=== PATIENT | male | born 1990 | race Caucasian/White ===

== ENCOUNTER 2018-04-08 19:23 | Emergency (ER) | payer BC, MEDICAID ==
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
[2018-04-08 20:53] VITALS: BP 127/61
== END 2018-04-08 20:56 | disposition home or self-care (01) ==
LOC: DL.ED 19:23
DX: M25.461 Effusion, right knee (principal); E10.9 Type 1 diabetes mellitus without complications
CPT/HCPCS: 73562-RT; 99283

== ENCOUNTER 2018-10-22 01:10 | Emergency (ER) | payer MEDICAID ==
[2018-10-22 01:26] VITALS: BP 130/81
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
[2018-10-22] MEDS ORDERED: Sodium Chloride 0.9% 1,000 ML IV ONE (01:57)
[2018-10-22 02:14] LABS: ACETAMINOPHEN < 10.0 ug/mL; ANION GAP 23.8; CHLORIDE,CL 94 mmol/L (101-111); SODIUM,NA 138 mmol/L (135-145)
== END 2018-10-22 02:51 ==
LOC: DL.ED 01:10
DX: E86.0 Dehydration (principal); R44.3 Hallucinations, unspecified; F15.10 Other stimulant abuse, uncomplicated; E10.9 Type 1 diabetes mellitus without complications; F17.210 Nicotine dependence, cigarettes, uncomplicated
CPT/HCPCS: 36415; 80053; 80305; 81001; 82962; 84484; 85025; 93005; 96360; 99282; G0480; J7030

== ENCOUNTER 2018-11-04 14:14 | Emergency (ER) | payer MEDICAID ==
[2018-11-04 15:49] VITALS: BP 143/76
[2018-11-04 16:44] LABS: ANION GAP 15.4; CHLORIDE,CL 99 mmol/L (101-111); SODIUM,NA 136 mmol/L (135-145)
[2018-11-04 16:58] LABS: ACETAMINOPHEN < 10 ug/mL
== END 2018-11-04 17:10 | disposition left against medical advice (07) ==
LOC: DL.ED 14:14
DX: Z53.21 Procedure and treatment not carried out due to patient leaving prior to being seen by health care provider (principal)
CPT/HCPCS: 36415; 80053; 80305; 81003; 85025; G0480

== ENCOUNTER 2019-03-14 08:31 | Emergency (ER) | payer MEDICAID ==
[~2019-03-14 08:31] MED LIST: Sodium Chloride 0.9% 10 ML Syringe FLUSH PRN
[2019-03-14 08:36] VITALS: BP 149/102
[2019-03-14] MEDS ORDERED: Bacitracin Oint 1 GM U/D Packet TOP ONE (08:39)
[2019-03-14] MEDS ORDERED: Lidocaine 1% 30 ML SDV INJECT ONE (08:39)
[2019-03-14 09:00] LABS: ANION GAP 14.1; CHLORIDE,CL 101 mmol/L (101-111); SODIUM,NA 136 mmol/L (135-145)
[2019-03-14] MEDS ORDERED: Potassium Chloride 10 MEQ Tab.ER PO ONE (10:45)
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
== END 2019-03-14 14:06 | disposition home or self-care (01) ==
LOC: DL.ED 08:31
DX: S61.210A Laceration without foreign body of right index finger without damage to nail, initial encounter (principal); S81.011A Laceration without foreign body, right knee, initial encounter; S81.012A Laceration without foreign body, left knee, initial encounter; E10.649 Type 1 diabetes mellitus with hypoglycemia without coma; F17.210 Nicotine dependence, cigarettes, uncomplicated; Y04.0XXA Assault by unarmed brawl or fight, initial encounter
CPT/HCPCS: 12001; 36415; 80053; 82962; 85025; 93005; 99285; A9270; G0480; J2001; 12002

== ENCOUNTER 2020-09-15 19:50 | Emergency (ER) | payer MEDICAID ==
[2020-09-15 20:16] VITALS: BP 145/79; PULSE 72
[2020-09-15] MEDS ORDERED: Amoxicillin 500 MG Cap PO ONE (21:09)
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
== END 2020-09-15 21:20 | disposition home or self-care (01) ==
LOC: DL.ED 19:50
DX: K04.7 Periapical abscess without sinus (principal); K02.9 Dental caries, unspecified; E10.9 Type 1 diabetes mellitus without complications; F17.210 Nicotine dependence, cigarettes, uncomplicated
CPT/HCPCS: 99282; A9270; 99283

== ENCOUNTER 2021-01-10 21:54 | Emergency (ER) | payer MEDICAID ==
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
[2021-01-10] MEDS ORDERED: Sodium Chloride 0.9% 1,000 ML IV ONE (22:04)
[2021-01-10] MEDS ORDERED: Naloxone 2 MG/2 ML Syringe IVPUSH ONE (22:23)
[2021-01-10 22:39] LABS: ANION GAP 12.6 mEq/L (7-13); CHLORIDE,CL 104 mmol/L (98-107); SODIUM,NA 142 mmol/L (136-145)
[2021-01-10] MEDS ORDERED: Ondansetron 4 MG/2 ML SDV IVPUSH ONE (22:41)
--- NOTE | 2021-01-10 22:42 | CT ---
PROCEDURE INFORMATION: Exam: CT Head Without Contrast Exam date and time: 01/10/2021 10:14 PM Age: 30 years old Clinical indication: Other: ETOH; Additional info: Altered mental status TECHNIQUE: Imaging protocol: Computed tomography of the head without contrast. Total images: 161 Radiation optimization: All CT scans at this facility use at least one of these dose optimization techniques: automated exposure control; mA and/or kV adjustment per patient size (includes targeted exams where dose is matched to clinical indication); or iterative reconstruction. COMPARISON: No relevant prior studies available. FINDINGS: Brain: No extra-axial fluid collections. No evidence of acute intracranial hemorrhage. Hawthorne-white differentiation is well maintained. No CT evidence of large territory acute or subacute intracranial ischemia/infarct. No intracranial mass lesions. No midline shift or herniation. Cerebral ventricles: Ventricles normal. Bones/joints: The calvarium and visualized facial bones are intact. Paranasal sinuses: Mucosal thickening in the right maxillary sinus with opacified left posterior ethmoid distribution consistent with chronic sinus inflammatory disease. No fluid levels. Mastoid air cells: Right mastoid air cells are clear. Sclerosis in the left mastoid distribution suggests mild chronic changes of prior mastoiditis. Orbital cavity: Visualized orbital contents demonstrate no evidence of acute abnormality. Vasculature: The visualized major intracranial arterial segments demonstrate no gross abnormality by noncontrast CT. No asymmetric vascular hyperdensities suggestive of thrombosis are identified. Soft tissues: Mild occipital scalp soft tissue swelling. No underlying fracture or foreign body. Other findings: The IACs are grossly normal. The sella is grossly normal. IMPRESSION: 1. No acute intracranial process. No intracranial hemorrhage or mass effect. 2. Occipital scalp soft tissue swelling with no underlying fracture or foreign body. 3. Evidence of mild chronic sinus inflammatory disease.
[2021-01-10] MEDS ORDERED: MVI, Adult with Vitamin K 10 ML, Thiamine 100 MG, Folic Acid 1 MG in Lactated Ringers 1... IV ONE ×4 (22:58)
[2021-01-10 23:00] VITALS: BP 121/66; PULSE 110
[2021-01-10 23:19] LABS: CORONAVIRUS COVID-19 NAA NEGATIVE (NEGATIVE)
== END 2021-01-11 00:08 | disposition home or self-care (01) ==
LOC: DL.ED 21:54
DX: E10.65 Type 1 diabetes mellitus with hyperglycemia (principal); F10.920 Alcohol use, unspecified with intoxication, uncomplicated; S00.81XA Abrasion of other part of head, initial encounter; R00.0 Tachycardia, unspecified; Y90.8 Blood alcohol level of 240 mg/100 ml or more; Z20.822 Contact with and (suspected) exposure to COVID-19; X58.XXXA Exposure to other specified factors, initial encounter
CPT/HCPCS: 0240U; 36415; 51702; 70450; 80053; 80305; 80307; 81001; 82009; 82140; 82550; 82962; 83605; 83735; 84484; 85025; 86140; 93005; 96365; 96375; 99285; J2405; J3411; J7030; J7120; 93010; 99284; J3490

== ENCOUNTER 2021-01-21 13:20 | Emergency (ER) | payer MEDICAID ==
--- NOTE | 2021-01-21 13:55 | EDM.PDOC ---
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 Today noticed it was red and swollen. Denies fever or chills. Onset: Gradual Onset Date: 01/19/21 Duration: Constant, Getting Worse Location: Reports: Upper Extremity, Left Quality: Reports: Ache, Pressure Severity: Moderate Improves with: Reports: None Worsens with: Reports: None Associated Symptoms: Reports: No Other Symptoms - Related Data Allergies Allergy/AdvReac Type Severity Reaction Status Date / Time No Known Allergies Allergy Verified 01/10/21 22:14 Home Meds: Home Meds Insulin Aspart [NovoLOG] 7 unit SUBCUT ASDIRECTED 11/03/15 [History] Insulin Glarg,Human.Rec.Analog [LantUS] 32 unit SUBCUT DAILY 11/03/15 [History] Past Medical History HEENT History: Reports: Impaired Vision Other HEENT History: wears glasses Cardiovascular History: Reports: None Respiratory History: Reports: Other (See Below) Other Respiratory History: hx collapsed lung year ago in July 2018, 5 broken ribs Gastrointestinal History: Reports: None Genitourinary History: Reports: None Musculoskeletal History: Reports: None Neurological History: Reports: None Psychiatric History: Reports: None Endocrine/Metabolic History: Reports: Diabetes, Type I Hematologic History: Reports: None Immunologic History: Reports: None Oncologic (Cancer) History: Reports: None Dermatologic History: Reports: None - Infectious Disease History Infectious Disease History: Reports: None - Past Surgical History Head Surgeries/Procedures: Reports: None Musculoskeletal Surgical History: Reports: Arthroscopic Procedure Other Musculoskeletal Surgeries/Procedures:: RIGHT hip x 2 arthroscopic. Torn labrum. Social & Family History - Family History Family Medical History: No Pertinent Family History - Caffeine Use Caffeine Use: Reports: Coffee, Energy Drinks, Soda, Tea - Living Situation & Occupation Living situation: Reports: with Family ED ROS GENERAL - Review of Systems Review Of Systems: Comprehensive ROS is negative, except as noted in HPI. ED EXAM, SKIN/RASH Exam: See Below Exam Limited By: No Limitations General Appearance: Alert, WD/WN, No Apparent Distress Head: Atraumatic, Normocephalic Neck: Normal Inspection Respiratory/Chest: No Respiratory Distress, Lungs Clear Cardiovascular: Normal Peripheral Pulses, Regular Rate, Rhythm Extremities: Increased Warmth, Other (Dorsum of left hand is erythematous, sw ollen, and tender. There is a partially healed laceration 2cm in length at the radial side of the dorsal left hand, no purulent drainage. ) Neurological: Alert, Oriented, No Motor/Sensory Deficits Psychiatric: Normal Mood Course - Vital Signs Last Recorded V/S: Last Vital Signs Temp 98.8 F 01/21/21 13:32 Pulse 97 01/21/21 13:32 Resp 16 01/21/21 13:32 BP 145/78 H 01/21/21 13:32 Pulse Ox 99 01/21/21 13:32 - Orders/Labs/Meds Orders: Active Orders 24 hr Category Date Time Status Peripheral IV Care [RC] . DIRECTED Care 01/21/21 13:59 Active Sodium Chloride 0.9% [Saline Flush] Med 01/21/21 13:59 Active 10 ml FLUSH ASDIRECTED PRN Peripheral IV Insertion Adult [OM.PC] Stat Oth 01/21/21 13:59 Ordered Medication Orders Sodium Chloride (Sodium Chloride 0.9% 10 Ml Syringe) 10 ml FLUSH ASDIRECTED PRN PRN Reason: Keep Vein Open Last Admin: 01/21/21 14:13 Dose: 10 ml Documented by: ANGELESMEG Labs: Laboratory Tests 01/21/21 01/21/21 Range/Units 14:05 14:05 WBC 11.6 H (5.0-10.0) 10^3/uL RBC 4.82 (4.6-6.2) 10^6/uL Hgb 14.6 (14.0-18.0) g/dL Hct 44.6 (40.0-54.0) % MCV 92.5 (80-100) fL MCH 30.3 (27.0-34.0) pg MCHC 32.7 L (33.0-35.0) g/dL Plt Count 400 (150-450) 10^3/uL Neut % (Auto) 71.0 (42.2-75.2) % Lymph % (Auto) 16.3 L (20.5-50.1) % [place] % (Auto) 9.6 H (2-8) % Eos % (Auto) 2.1 (1.0-3.0) % Baso % (Auto) 1.0 (0.0-1.0) % C-Reactive Protein 0.7 (0.0-0.9) mg/dL Meds: Medications Generic Name Dose Route Start Last Admin Trade Name Freq PRN Reason Stop Dose Admin Sodium Chloride 10 ml 01/21/21 13:59 01/21/21 14:13 Sodium Chloride 0.9% 10 Ml Syringe FLUSH 10 ml ASDIRECTED PRN Administration Keep Vein Open Discontinued Medications Generic Name Dose Route Start Last Admin Trade Name Freq PRN Reason Stop Dose Admin Diphenhydramine HCl 25 mg 01/21/21 14:03 01/21/21 14:13 Diphenhydramine 50 Mg/Ml Sdv IVPUSH 01/21/21 14:04 25 mg ONETIME ONE Administration Vancomycin HCl 1.5 gm/ Premix 300 mls @ 200 mls/hr 01/21/21 14:30 01/21/21 14:43 IV 01/21/21 15:59 200 mls/hr ONETIME ONE Administration Departure - Departure Time of Disposition: 16:30 Disposition: Home, Self-Care 01 Condition: Good Clinical Impression: Laceration of left hand with infection Qualifiers: Encounter type: initial encounter Qualified Code(s): S61.412A - Laceration without foreign body of left hand, initial encounter; L08.9 - Local infection of the skin and subcutaneous tissue, unspecified - Discharge Information *PRESCRIPTION DRUG MONITORING PROGRAM REVIEWED*: Not Applicable *COPY OF PRESCRIPTION DRUG MONITORING REPORT IN PATIENT XENIA: Not Applicable Instructions: Nonsutured Laceration Care, Cellulitis, Adult Forms: ED Department Discharge Additional Instructions: Rx: Clindamycin 300mg Rx: Doxycycline 100mg Follow up in clinic in 3 to 5 days for recheck. Return to ER if worse at any time. Sepsis Event Note (ED) - Focused Exam Vital Signs: Vital Signs Temp Pulse Resp BP Pulse Ox 01/21/21 13:32 98.8 F 97 16 145/78 H 99 - My Orders Last 24 Hours: My Active Orders 01/21/21 13:59 Peripheral IV Care [RC] . DIRECTED Sodium Chloride 0.9% [Saline Flush] 10 ml FLUSH ASDIRECTED PRN Peripheral IV Insertion Adult [OM.PC] Stat - Assessment/Plan Last 24 Hours: My Active Orders 01/21/21 13:59 Peripheral IV Care [RC] . DIRECTED Sodium Chloride 0.9% [Saline Flush] 10 ml FLUSH ASDIRECTED PRN Peripheral IV Insertion Adult [OM.PC] Stat
[2021-01-21] MEDS ORDERED: Sodium Chloride 0.9% 10 ML Syringe FLUSH PRN (13:59)
[2021-01-21] MEDS ORDERED: diphenhydrAMINE 50 MG/ML SDV IVPUSH ONE (14:03)
[2021-01-21] MEDS ORDERED: VANCOmycin 1.5 GM/300 ML 1.5 GM in Premix Bag 1 BAG IV ONE (14:30)
[2021-01-21 17:05] VITALS: BP 139/87; PULSE 85
== END 2021-01-21 17:10 | disposition home or self-care (01) ==
LOC: DL.ED 13:20
DX: S61.412A Laceration without foreign body of left hand, initial encounter (principal); L08.9 Local infection of the skin and subcutaneous tissue, unspecified; E10.9 Type 1 diabetes mellitus without complications; W26.8XXA Contact with other sharp object(s), not elsewhere classified, initial encounter
CPT/HCPCS: 36415; 85025; 86140; 96365; 96366; 96375; 99283; J1200; J3370

== ENCOUNTER 2021-01-27 11:43 | Emergency (ER) | payer MEDICAID ==
[2021-01-27] MEDS ORDERED: Bacitracin Oint 1 GM U/D Packet TOP ONE (11:54)
[2021-01-27] MEDS ORDERED: Lidocaine 1% 30 ML SDV INJECT ONE (11:54)
[2021-01-27 12:08] VITALS: BP 147/63; PULSE 88
--- NOTE | 2021-01-27 12:26 | EDM.PDOC ---
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 Patient does have another laceration to the right hand which occurred on 21 January. Patient did not immed iately come to ER at that time, came the day later. Patient was put on IV antibiotics at that time as well sent home with oral antibiotics. Onset: Today, Sudden - Related Data Allergies Allergy/AdvReac Type Severity Reaction Status Date / Time No Known Allergies Allergy Verified 01/10/21 22:14 Home Meds: Home Meds Insulin Aspart [NovoLOG] 7 unit SUBCUT ASDIRECTED 11/03/15 [History] Insulin Glarg,Human.Rec.Analog [LantUS] 32 unit SUBCUT DAILY 11/03/15 [History] Past Medical History HEENT History: Reports: Impaired Vision Other HEENT History: wears glasses Cardiovascular History: Reports: None Respiratory History: Reports: Other (See Below) Other Respiratory History: hx collapsed lung year ago in July 2018, 5 broken ribs Gastrointestinal History: Reports: None Genitourinary History: Reports: None Musculoskeletal History: Reports: None Neurological History: Reports: None Psychiatric History: Reports: None Endocrine/Metabolic History: Reports: Diabetes, Type I Hematologic History: Reports: None Immunologic History: Reports: None Oncologic (Cancer) History: Reports: None Dermatologic History: Reports: None - Infectious Disease History Infectious Disease History: Reports: None - Past Surgical History Head Surgeries/Procedures: Reports: None Musculoskeletal Surgical History: Reports: Arthroscopic Procedure Other Musculoskeletal Surgeries/Procedures:: RIGHT hip x 2 arthroscopic. Torn labrum. Social & Family History - Family History Family Medical History: No Pertinent Family History - Tobacco Use Tobacco Use Status *Q: Current Every Day Tobacco User Years of Tobacco use: 10 Packs/Tins Daily: 1 - Caffeine Use Caffeine Use: Reports: None - Recreational Drug Use Recreational Drug Use: No - Living Situation & Occupation Living situation: Reports: with Family ED ROS GENERAL - Review of Systems Review Of Systems: Comprehensive ROS is negative, except as noted in HPI. ED EXAM, SKIN/RASH Exam: See Below Exam Limited By: No Limitations General Appearance: Alert, WD/WN, No Apparent Distress Eye Exam: Bilateral Eye: EOMI, Normal Inspection Ears: Normal External Exam, Hearing Grossly Normal Nose: Normal Inspection Throat/Mouth: Normal Inspection, Normal Voice, No Airway Compromise Head: Atraumatic, Normocephalic Neck: Normal Inspection, Supple, Non-Tender, Full Range of Motion Respiratory/Chest: No Respiratory Distress, Lungs Clear, Normal Breath Sounds, No Accessory Muscle Use, Chest Non-Tender Cardiovascular: Normal Peripheral Pulses, Regular Rate, Rhythm, No Edema, No Gallop, No JVD, No Murmur, No Rub Peripheral Pulses: 2+: Radial (L), Radial (R) GI/Abdominal: Normal Bowel Sounds, Soft, Non-Tender (Male) Exam: Deferred Rectal (Males) Exam: Deferred Back Exam: Normal Inspection, Full Range of Motion, NT Extremities: Normal Inspection, Normal Range of Motion, Non-Tender, No Pedal Edema, Normal Capillary Refill Neurological: Alert, Oriented, CN II-XII Intact, Normal Cognition, Normal Gait, Normal Reflexes, No Motor/Sensory Deficits Psychiatric: Normal Affect, Normal Mood Skin: Warm, Dry, Normal Color, No Rash, Other (3 cm laceration to the lateral right middle finger) Location, Skin: Upper Extremity, Right Lymphatic: No Adenopathy ED SKIN PROCEDURES - Laceration/Wound Repair Right Lateral Digit - 3rd (Middle) Appearance: Superficial Distal NVT: Neuro & Vascular Intact Anesthetic Type: Local Local Anesthesia - Lidocaine (Xylocaine): 1% Plain Local Anesthetic Volume: 4cc Skin Prep: Chlorhexidine (Hibiciens) Exploration/Debridement/Repair: Wound Explored, In a Bloodless Field, Explored to Base, No Foreign Material Found Closed with: Sutures Lac/Wound length In cm: 3 Suture Size: 4-0 # of Sutures: 6 Suture Type: Nylon, Interrupted Drain Placement: No Sterile Dressing Applied: Nurse Tetanus Status Addressed: Yes (Last updated in 2019) Complications: No Course - Vital Signs Last Recorded V/S: Last Vital Signs Temp 97.8 F 01/27/21 12:05 Pulse 88 01/27/21 12:05 Resp 18 01/27/21 12:05 BP 147/63 H 01/27/21 12:05 Pulse Ox 99 01/27/21 12:05 - Orders/Labs/Meds Meds: Medications Discontinued Medications Generic Name Dose Route Start Last Admin Trade Name Bonita WARREN Reason Stop Dose Admin Bacitracin 1 dose 01/27/21 11:54 01/27/21 11:59 Bacitracin Oint 1 Gm U/D Packet TOP 01/27/21 11:55 1 dose ONETIME ONE Administration Lidocaine HCl 30 ml 01/27/21 11:54 01/27/21 11:59 Lidocaine 1% 30 Ml Sdv INJECT 01/27/21 11:55 30 ml ONETIME ONE Administration Departure - Departure Time of Disposition: 12:25 Disposition: Home, Self-Care 01 Condition: Good Clinical Impression: Laceration - Discharge Information *PRESCRIPTION DRUG MONITORING PROGRAM REVIEWED*: No *COPY OF PRESCRIPTION DRUG MONITORING REPORT IN PATIENT XENIA: No Instructions: Laceration Care, Adult, [id number], Sutures, Radha, or Adhesive Wound Closure, [id number] Forms: ED Department Discharge Additional Instructions: Monitor for signs of infection Follow up with your primary care facility in 7-10 days to have sutures removed Keep area clean and dry Sepsis Event Note (ED) - Evaluation Sepsis Screening Result: No Definite Risk - Focused Exam Vital Signs: Vital Signs Temp Pulse Resp BP Pulse Ox 01/27/21 12:05 97.8 F 88 18 147/63 H 99
== END 2021-01-27 12:10 | disposition home or self-care (01) ==
LOC: DL.ED 11:43
DX: S61.212A Laceration without foreign body of right middle finger without damage to nail, initial encounter (principal); E10.9 Type 1 diabetes mellitus without complications; Z72.0 Tobacco use; W26.0XXA Contact with knife, initial encounter; Y92.89 Other specified places as the place of occurrence of the external cause; Y99.0 Civilian activity done for income or pay
CPT/HCPCS: 12002; 99282; 99282-25

== ENCOUNTER 2021-02-02 15:52 | Emergency (ER) | payer MEDICAID ==
[2021-02-02 17:50] VITALS: BP 163/82; PULSE 104
== END 2021-02-02 20:19 | disposition left against medical advice (07) ==
LOC: DL.ED 15:52
DX: Z53.21 Procedure and treatment not carried out due to patient leaving prior to being seen by health care provider (principal)
CPT/HCPCS: 36415; 85025

== ENCOUNTER 2021-02-10 08:04 | Emergency (ER) | payer MEDICAID ==
[2021-02-10 08:46] VITALS: BP 126/80; PULSE 93
--- NOTE | 2021-02-10 09:06 | EDM.PDOC ---
ED HPI GENERAL MEDICAL PROBLEM - General Chief Complaint: Respiratory Problem Stated Complaint: COUGH / TIGHTNESS IN CHEST Time Seen by Provider: 02/10/21 08:40 Source of Information: Reports: Patient, RN, RN Notes Reviewed History Limitations: Reports: No Limitations - History of Present Illness INITIAL COMMENTS - FREE TEXT/NARRATIVE: Patient presents to the ED via personal vehicle for complaints of cough, shortness of breath, and general malaise. The patient reports his symptoms began two days ago and have progressively worsened in that time. He notes his cough has been productive and his shortness of breath is worse when he is laying down. He has taken one dose of a decongestant today for sinus pressure, which offered him little to no relief of his symptoms. He denies fever, chest pain, palpitations, nausea, or diarrhea. He does attest to shaking chills, sore throat, chest tightness with cough, and one episode of emesis following a cough- attack. Additionally, he notes worsening purulent drainage, erythema, and pain to a laceration on his left, second digit. He has been taking Bactrim DS BID and Keflex 500mg for this wound. Chest Pain Score (Numeric/FACES): 8 - Related Data Allergies Allergy/AdvReac Type Severity Reaction Status Date / Time No Known Allergies Allergy Verified 02/10/21 08:21 Home Meds: Home Meds Insulin Aspart [NovoLOG] 7 unit SUBCUT ASDIRECTED 11/03/15 [History] Insulin Glarg,Human.Rec.Analog [LantUS] 32 unit SUBCUT DAILY 11/03/15 [History] Past Medical History HEENT History: Reports: Impaired Vision Other HEENT History: wears glasses Cardiovascular History: Reports: None Respiratory History: Reports: Other (See Below) Other Respiratory History: hx R) pneumothorax July 2018, 5 broken ribs Gastrointestinal History: Reports: None Genitourinary History: Reports: None Musculoskeletal History: Reports: None Neurological History: Reports: None Psychiatric History: Reports: None Endocrine/Metabolic History: Reports: Diabetes, Type I Hematologic History: Reports: None Immunologic History: Reports: None Oncologic (Cancer) History: Reports: None Dermatologic History: Reports: None - Infectious Disease History Infectious Disease History: Reports: None - Past Surgical History Head Surgeries/Procedures: Reports: None Musculoskeletal Surgical History: Reports: Arthroscopic Procedure Other Musculoskeletal Surgeries/Procedures:: RIGHT hip x 2 arthroscopic. Torn labrum. Social & Family History - Family History Family Medical History: No Pertinent Family History - Tobacco Use Tobacco Use Status *Q: Current Every Day Tobacco User Years of Tobacco use: 10 Packs/Tins Daily: 1 - Caffeine Use Caffeine Use: Reports: Soda - Recreational Drug Use Recreational Drug Use: No - Living Situation & Occupation Living situation: Reports: with Family ED ROS GENERAL - Review of Systems Review Of Systems: Comprehensive ROS is negative, except as noted in HPI. ED EXAM, GENERAL - Physical Exam Exam: See Below Exam Limited By: No Limitations General Appearance: Alert, No Apparent Distress Eye Exam: Bilateral Eye: EOMI, Normal Inspection, PERRL (3mm) Ears: Normal External Exam, Normal Canal, Hearing Grossly Normal. No: Normal TMs (Dull TM, bilaterally) Ear Exam: Bilateral Ear: Auricle Normal, Canal Normal, TM Dull Nose: Normal Inspection, Normal Mucosa, No Blood Throat/Mouth: Normal Oropharynx, Normal Voice, No Airway Compromise, Inflammation (Erythema to posterior oropharynx) Head: Atraumatic, Normocephalic Neck: Normal Inspection, Supple, Non-Tender, Full Range of Motion, Lymphadenopathy (L) (Anterior cervical chain). No: Lymphadenopathy (R) Respiratory/Chest: No Respiratory Distress, No Accessory Muscle Use, Chest Non- Tender, Rhonchi (To bilateral mid lobes), Wheezing (Expiratory to left upper lobe). No: Crackles, Rales, Stridor Cardiovascular: Normal Peripheral Pulses, Regular Rate, Rhythm, No Edema, No G allop, No JVD, No Murmur, No Rub Peripheral Pulses: 2+: Radial (L), Radial (R) GI/Abdominal: Normal Bowel Sounds, Soft, Non-Tender, No Distention, No Mass, Pelvis Stable (Male) Exam: Deferred Rectal (Males) Exam: Deferred Back Exam: Normal Inspection, Full Range of Motion Extremities: Normal Inspection, Normal Range of Motion, Non-Tender, No Pedal Edema, Normal Capillary Refill Neurological: Alert, Oriented, CN II-XII Intact, Normal Cognition, Normal Gait, No Motor/Sensory Deficits Psychiatric: Normal Affect, Normal Mood Skin Exam: Warm, Intact, Normal Color, No Rash, Diaphoretic. No: Ecchymosis, Erythema, Jaundice, Mottled, Pallor, Petechiae Lymphatic: No Adenopathy Course - Vital Signs Last Recorded V/S: Last Vital Signs Temp 97.7 F 02/10/21 08:21 Pulse 93 02/10/21 08:21 Resp 20 02/10/21 08:21 BP 126/80 02/10/21 08:21 Pulse Ox 100 02/10/21 08:21 - Orders/Labs/Meds Labs: Laboratory Tests 02/10/21 02/10/21 02/10/21 Range/Units 08:48 09:22 09:22 WBC 8.9 (5.0-10.0) 10^3/uL RBC 5.06 (4.6-6.2) 10^6/uL Hgb 15.4 (14.0-18.0) g/dL Hct 45.6 (40.0-54.0) % MCV 90.1 (80-100) fL MCH 30.4 (27.0-34.0) pg MCHC 33.8 (33.0-35.0) g/dL Plt Count 386 (150-450) 10^3/uL Neut % (Auto) 69.5 (42.2-75.2) % Lymph % (Auto) 14.9 L (20.5-50.1) % [place] % (Auto) 11.1 H (2-8) % Eos % (Auto) 3.4 H (1.0-3.0) % Baso % (Auto) 1.1 H (0.0-1.0) % Sodium 132 L D (136-145) mmol/L Potassium 4.3 (3.5-5.1) mmol/L Chloride 97 L (98-107) mmol/L Carbon Dioxide 28 (21-32) mmol/L Anion Gap 11.3 (7-13) mEq/L BUN 15 (7-18) mg/dL Creatinine 1.28 (0.70-1.30) mg/dL Est Cr Clr Drug Dosing 81.64 mL/min Estimated GFR (MDRD) > 60 BUN/Creatinine Ratio 11.7 (No establ ref range) Glucose 322 H (70-99) mg/dL Lactic Acid (0.4-2.0) mmol/L Calcium 8.3 L (8.5-10.1) mg/dL Total Bilirubin 0.9 (0.2-1.0) mg/dL AST 33 (15-37) U/L ALT 47 (16-63) U/L Alkaline Phosphatase 114 (46-116) U/L C-Reactive Protein 1.4 H (0.0-0.9) mg/dL Total Protein 7.1 (6.4-8.2) g/dL Albumin 3.7 (3.4-5.0) g/dL Globulin 3.4 Albumin/Globulin Ratio 1.1 Influenza Type A RNA Negative (NEGATIVE) Influenza Type B RNA Negative (NEGATIVE) SARS-CoV-2 RNA (MARTY) Negative (NEGATIVE) 02/10/21 Range/Units 09:22 WBC (5.0-10.0) 10^3/uL RBC (4.6-6.2) 10^6/uL Hgb (14.0-18.0) g/dL Hct (40.0-54.0) % MCV (80-100) fL MCH (27.0-34.0) pg MCHC (33.0-35.0) g/dL Plt Count (150-450) 10^3/uL Neut % (Auto) (42.2-75.2) % Lymph % (Auto) (20.5-50.1) % [place] % (Auto) (2-8) % Eos % (Auto) (1.0-3.0) % Baso % (Auto) (0.0-1.0) % Sodium (136-145) mmol/L Potassium (3.5-5.1) mmol/L Chloride (98-107) mmol/L Carbon Dioxide (21-32) mmol/L Anion Gap (7-13) mEq/L BUN (7-18) mg/dL Creatinine (0.70-1.30) mg/dL Est Cr Clr Drug Dosing mL/min Estimated GFR (MDRD) BUN/Creatinine Ratio (No establ ref range) Glucose (70-99) mg/dL Lactic Acid 0.8 (0.4-2.0) mmol/L Calcium (8.5-10.1) mg/dL Total Bilirubin (0.2-1.0) mg/dL AST (15-37) U/L ALT (16-63) U/L Alkaline Phosphatase (46-116) U/L C-Reactive Protein (0.0-0.9) mg/dL Total Protein (6.4-8.2) g/dL Albumin (3.4-5.0) g/dL Globulin Albumin/Globulin Ratio Influenza Type A RNA (NEGATIVE) Influenza Type B RNA (NEGATIVE) SARS-CoV-2 RNA (MARTY) (NEGATIVE) - Radiology Interpretation Free Text/Narrative:: [facility] [place] [facility] Final Radiology Report Call: [phone] assistance Online chat: [email or web address] Name: BLANCA HURLEY Age: 30Years M Date: 02/10/2021 SSN: -- : 1990 Study: CR CHEST 2V Requesting Physician: Sidra Corado Images: 3 Addl Studies: Provided Clinical History: cough; SOB; Rales and expiratory wheeze to left Contrast: Contrast Medium: Contrast Amount: Contrast Method: CONFIDENTIALITY STATEMENT This report is intended only for use by the referring physician, and only in accordance with law. If you received this in error, call [phone]. Page 1 of 1 PROCEDURE INFORMATION: Exam: XR Chest Exam date and time: 02/10/2021 10:07 AM Age: 30 years old Clinical indication: Other: Cough; SOB; Rales and expiratory wheeze to left TECHNIQUE: Imaging protocol: XR of the chest. Views: 2 views. COMPARISON: CR Ribs 2V w Chest Rt 09/22/2018 6:24 PM FINDINGS: Lungs: Unremarkable. No consolidation. Pleural spaces: Unremarkable. No pleural effusion. No pneumothorax. Heart/Mediastinum: Unremarkable. No cardiomegaly. Bones/joints: Bilateral old rib fractures. IMPRESSION: No acute findings. For Thank you for allowing us to participate in the care of your patient. Dictated and Authenticated by: Timo Pozo MD 02/10/2021 10:32 AM Central Time ([place] & [place]) - Re-Assessments/Exams Free Text/Narrative Re-Assessment/Exam: 02/10/21 COVID negative. CXR unremarkable for acute processes. CBC unremarkable for acute processes; no evidence of infection or anemia. Electrolytes, kidney function, and liver function appropriate via CMP; glucose significantly elevated at 322. Patient attests to a history of DMI. Patient currently on Lantus 32mg daily and NovoLog 7u with meals. COVID and Influnza negative. Discussing findings of examination, lab work, and imaging with patient. Will treat finger wound with Doxycycline 100mg BID and previously prescribed antibiotics. Discussed supportive cares for upper respiratory infection, as well as red flag signs and symptoms which would warrant reevaluation. Patient verbalized understanding and agreement with the plan of care. Departure - Departure Time of Disposition: 10:35 Disposition: Home, Self-Care 01 Condition: Good Clinical Impression: Viral upper respiratory infection, Non-healing wound, Hyperglycemia due to type 1 diabetes mellitus - Discharge Information *PRESCRIPTION DRUG MONITORING PROGRAM REVIEWED*: Not Applicable *COPY OF PRESCRIPTION DRUG MONITORING REPORT IN PATIENT XNEIA: Not Applicable Instructions: Viral Respiratory Infection, [id number] Forms: ED Department Discharge Additional Instructions: Rx: Sangeetha Salas Rx: doxycycline 1.) Continue supportive cares for your upper respiratory infection, including decongestants and nasal rinses. 2.) You may take ibuprofen (Advil/Motrin) 400mg every six hours, for headache and fever. You may also take acetaminophen (Tylenol) 650mg every six hours, for headache and fever. You may stagger these medications so you are receiving a dose every three hours. 3.) Continue monitoring blood sugars and keep blood sugar within target range to help with wound healing. 4.) Take all of your antibiotics until they are gone. 5.) Follow up with your primary care provider regarding today's visit in two weeks for wound re-check. Sepsis Event Note (ED) - Evaluation Sepsis Screening Result: No Definite Risk
[2021-02-10 09:49] LABS: ANION GAP 11.3 mEq/L (7-13); CHLORIDE,CL 97 mmol/L (98-107); SODIUM,NA 132 mmol/L (136-145)
[2021-02-10 09:49] LABS: CORONAVIRUS COVID-19 NAA NEGATIVE (NEGATIVE)
--- NOTE | 2021-02-10 10:32 | CR ---
PROCEDURE INFORMATION: Exam: XR Chest Exam date and time: 02/10/2021 10:07 AM Age: 30 years old Clinical indication: Other: Cough; SOB; Rales and expiratory wheeze to left TECHNIQUE: Imaging protocol: XR of the chest. Views: 2 views. COMPARISON: CR Ribs 2V w Chest Rt 09/22/2018 6:24 PM FINDINGS: Lungs: Unremarkable. No consolidation. Pleural spaces: Unremarkable. No pleural effusion. No pneumothorax. Heart/Mediastinum: Unremarkable. No cardiomegaly. Bones/joints: Bilateral old rib fractures. IMPRESSION: No acute findings. For
== END 2021-02-10 10:56 | disposition home or self-care (01) ==
LOC: DL.ED 08:04
DX: J06.9 Acute upper respiratory infection, unspecified (principal); T81.89XA Other complications of procedures, not elsewhere classified, initial encounter; E10.65 Type 1 diabetes mellitus with hyperglycemia; Z20.822 Contact with and (suspected) exposure to COVID-19; Z72.0 Tobacco use
CPT/HCPCS: 0240U; 36415; 71046; 80053; 83605; 85025; 86140; 99285-25

== ENCOUNTER 2021-03-01 10:04 | Emergency (ER) | payer MEDICAID ==
[2021-03-01] MEDS ORDERED: Ciprofloxacin in D5W 400 MG in Premix Bag 1 BAG IV ONE ×2 (10:51)
--- NOTE | 2021-03-01 10:51 | CR ---
PROCEDURE INFORMATION: Exam: XR Right Finger(s) Exam date and time: 03/01/2021 10:42 AM Age: 30 years old Clinical indication: Swelling; Fingers; Right; Additional info: R/O osteomyelitis; Infected wound TECHNIQUE: Imaging protocol: XR Right fingers. Views: Minimum 2 views. COMPARISON: No relevant prior studies available. FINDINGS: Bones/joints: Normal Soft tissues: Marked soft tissue swelling about 3rd PIP joint, especially dorsally. IMPRESSION: Soft tissue swelling right 3rd PIP joint. Underlying bones appear normal
[2021-03-01 11:01] LABS: ANION GAP 14.1 mEq/L (7-13); CHLORIDE,CL 101 mmol/L (98-107); SODIUM,NA 137 mmol/L (136-145)
[2021-03-01] MEDS ORDERED: Clindamycin HCl 150 MG Cap PO ONE (11:27)
--- NOTE | 2021-03-01 11:32 | EDM.PDOC ---
ED HPI GENERAL MEDICAL PROBLEM - General Chief Complaint: Upper Extremity Injury/Pain Stated Complaint: INFECTED FINGER Time Seen by Provider: 03/01/21 10:25 Source of Information: Reports: Patient, Old Records, RN, RN Notes Reviewed History Limitations: Reports: No Limitations - History of Present Illness INITIAL COMMENTS - FREE TEXT/NARRATIVE: [place] is a 30 y/o male with a history of DM I who presents to the ED via personal vehicle with complaints of swelling, pain, and drainage to the third digit on his right hand. The patient was examined in this facility following a laceration to this finger approximately one month ago. In the past 20 days he has been on courses of doxycycline with clindamycin, Bactrim with Keflex, and another round of doxycycline added 1/[address] way through the Bactrim/Keflex course. He denies fever, shaking chills, palpitations, nausea, vomiting, diarrhea, or loss of sensory function to the digit. He does attest to decreased range of motion due to swelling of the joint. The patient reports he has had a difficult time managing his blood sugars over the past 30 days with results ranging between 200-300. He attests to smoking about 5 cigarettes per day; he denies alcohol or recreational drug use. Right Middle Posterior Finger-Middle Pain Score (Numeric/FACES): 10 - Related Data Allergies Allergy/AdvReac Type Severity Reaction Status Date / Time No Known Allergies Allergy Verified 03/01/21 10:21 Home Meds: Home Meds Insulin Aspart [NovoLOG] 7 unit SUBCUT ASDIRECTED 11/03/15 [History] Insulin Glarg,Human.Rec.Analog [LantUS] 32 unit SUBCUT DAILY 11/03/15 [History] Past Medical History HEENT History: Reports: Impaired Vision Other HEENT History: wears glasses Cardiovascular History: Reports: None Respiratory History: Reports: Other (See Below) Other Respiratory History: hx R) pneumothorax July 2018, 5 broken ribs Gastrointestinal History: Reports: None Genitourinary History: Reports: None Musculoskeletal History: Reports: None Neurological History: Reports: None Psychiatric History: Reports: None Endocrine/Metabolic History: Reports: Diabetes, Type I Hematologic History: Reports: None Immunologic History: Reports: None Oncologic (Cancer) History: Reports: None Dermatologic History: Reports: None - Infectious Disease History Infectious Disease History: Reports: None - Past Surgical History Head Surgeries/Procedures: Reports: None Musculoskeletal Surgical History: Reports: Arthroscopic Procedure Other Musculoskeletal Surgeries/Procedures:: RIGHT hip x 2 arthroscopic. Torn labrum. Social & Family History - Family History Family Medical History: No Pertinent Family History - Tobacco Use Tobacco Use Status *Q: Never Tobacco User - Caffeine Use Caffeine Use: Reports: None, Coffee, Energy Drinks, Soda, Tea, Other - Recreational Drug Use Recreational Drug Use: No - Living Situation & Occupation Living situation: Reports: with Family Review of Systems - Review of Systems Review Of Systems: Comprehensive ROS is negative, except as noted in HPI. ED EXAM, GENERAL - Physical Exam Exam: See Below Exam Limited By: No Limitations General Appearance: Alert, No Apparent Distress Throat/Mouth: Normal Inspection, Normal Oropharynx, Normal Voice, No Airway Compromise Head: Atraumatic, Normocephalic Neck: Normal Inspection, Supple, Non-Tender, Full Range of Motion. No: Lymphadenopathy (L), Lymphadenopathy (R) Respiratory/Chest: No Respiratory Distress, Lungs Clear, Normal Breath Sounds, No Accessory Muscle Use, Chest Non-Tender Cardiovascular: Normal Peripheral Pulses, Regular Rate, Rhythm, No Edema, No Gallop, No JVD, No Murmur, No Rub Peripheral Pulses: 2+: Radial (L), Radial (R) GI/Abdominal: Normal Bowel Sounds, Soft, Non-Tender, No Distention, No Abnormal Bruit, No Mass, Pelvis Stable (Male) Exam: Deferred Rectal (Males) Exam: Deferred Back Exam: Normal Inspection, Full Range of Motion, NT Extremities: Normal Capillary Refill, Joint Swelling (To right hand, third digit), Arm Pain (To right hand, third digit), Limited Range of Motion (To right hand, third digit), Increased Warmth (To right hand, third digit), Redness (To right hand, third digit), Other (Open non-healing wound approximately 1cm x 3cm to posterior aspect of right third digit; Purulent drainage appreciated). No: Mottled, Pallor Neurological: Alert, Oriented, CN II-XII Intact, Normal Cognition, Normal Gait, Normal Reflexes, No Motor/Sensory Deficits Psychiatric: Normal Affect, Normal Mood Skin Exam: Warm, Dry, No Rash, Erythema (To right hand, third digit), Increased Warmth (To right hand, third digit), Wound/Incision (See above). No: Ecchy mosis, Jaundice, Lymphangitis, Mottled, Pallor, Petechiae Lymphatic: No Adenopathy Course - Vital Signs Last Recorded V/S: Last Vital Signs Temp 97.5 F 03/01/21 12:20 Pulse 83 03/01/21 12:20 Resp 18 03/01/21 12:20 BP 152/93 H 03/01/21 12:20 Pulse Ox 100 03/01/21 12:20 - Orders/Labs/Meds Labs: Laboratory Tests 03/01/21 03/01/21 03/01/21 Range/Units 10:18 10:36 10:36 WBC 8.7 (5.0-10.0) 10^3/uL RBC 4.65 (4.6-6.2) 10^6/uL Hgb 14.5 (14.0-18.0) g/dL Hct 43.8 (40.0-54.0) % MCV 94.2 D (80-100) fL MCH 31.2 (27.0-34.0) pg MCHC 33.1 (33.0-35.0) g/dL Plt Count 388 (150-450) 10^3/uL Neut % (Auto) 58.7 (42.2-75.2) % Lymph % (Auto) 24.9 (20.5-50.1) % Cannon % (Auto) 12.7 H (2-8) % Eos % (Auto) 2.8 (1.0-3.0) % Baso % (Auto) 0.9 (0.0-1.0) % Sodium 137 (136-145) mmol/L Potassium 4.1 (3.5-5.1) mmol/L Chloride 101 (98-107) mmol/L Carbon Dioxide 26 (21-32) mmol/L Anion Gap 14.1 H (7-13) mEq/L BUN 9 (7-18) mg/dL Creatinine 1.09 (0.70-1.30) mg/dL Est Cr Clr Drug Dosing 108.77 mL/min Estimated GFR (MDRD) > 60 BUN/Creatinine Ratio 8.3 (No establ ref range) Glucose 310 H (70-99) mg/dL POC Glucose 293 H (70-99) mg/dL Lactic Acid (0.4-2.0) mmol/L Calcium 8.0 L (8.5-10.1) mg/dL Total Bilirubin 0.3 (0.2-1.0) mg/dL AST 14 L (15-37) U/L ALT 31 (16-63) U/L Alkaline Phosphatase 104 (46-116) U/L C-Reactive Protein 0.3 (0.0-0.9) mg/dL Total Protein 6.4 (6.4-8.2) g/dL Albumin 3.4 (3.4-5.0) g/dL Globulin 3.0 Albumin/Globulin Ratio 1.1 / Range/Units 10:36 WBC (5.0-10.0) 10^3/uL RBC (4.6-6.2) 10^6/uL Hgb (14.0-18.0) g/dL Hct (40.0-54.0) % MCV (80-100) fL MCH (27.0-34.0) pg MCHC (33.0-35.0) g/dL Plt Count (150-450) 10^3/uL Neut % (Auto) (42.2-75.2) % Lymph % (Auto) (20.5-50.1) % Cannon % (Auto) (2-8) % Eos % (Auto) (1.0-3.0) % Baso % (Auto) (0.0-1.0) % Sodium (136-145) mmol/L Potassium (3.5-5.1) mmol/L Chloride (98-107) mmol/L Carbon Dioxide (21-32) mmol/L Anion Gap (7-13) mEq/L BUN (7-18) mg/dL Creatinine (0.70-1.30) mg/dL Est Cr Clr Drug Dosing mL/min Estimated GFR (MDRD) BUN/Creatinine Ratio (No establ ref range) Glucose (70-99) mg/dL POC Glucose (70-99) mg/dL Lactic Acid 1.2 (0.4-2.0) mmol/L Calcium (8.5-10.1) mg/dL Total Bilirubin (0.2-1.0) mg/dL AST (15-37) U/L ALT (16-63) U/L Alkaline Phosphatase (46-116) U/L C-Reactive Protein (0.0-0.9) mg/dL Total Protein (6.4-8.2) g/dL Albumin (3.4-5.0) g/dL Globulin Albumin/Globulin Ratio Meds: Medications Discontinued Medications Generic Name Dose Route Start Last Admin Trade Name Jamieq PRN Reason Stop Dose Admin Clindamycin HCl 300 mg 03/01/21 11:27 03/01/21 11:36 Clindamycin Hcl 150 Mg Cap PO 03/01/21 11:28 300 mg ONETIME ONE Administration Ciprofloxacin/Dextrose 400 mg/ 200 mls @ 200 mls/hr 03/01/21 10:51 03/01/21 11:16 Premix IV 03/01/21 11:50 200 mls/hr ONETIME ONE Administration - Re-Assessments/Exams Free Text/Narrative Re-Assessment/Exam: 03/01/21 Blood cultures and wound cultures sent. CBC unremarkable for systemic infectious processes. Lactic Acid WNL. CRP WNL. Will treat with Cipro and Clindamycin here and OP while culture pending. Xray of right hand/digit negative for indications of osteomyelitis; no evidence of bone destruction. Electrolytes, kidney function, and liver function appropriate via CMP. BS elevated a 310. Patient states he took NovoLog 11units prior to arrival; he states he will monitor BS and use home medications to treat elevated sugar. Findings of examination, imaging, and lab work reviewed with patient. Ciprofloxacin 400mg IVP administered. Clindamycin 300mg PO administered Discussed supportive cares for non-healing wound. Patient to follow up with PCP on Tuesday, March 03, at previously scheduled appointment. Reviewed possible need for ID consult and to discuss wound with PCP. Red flag signs and symptoms which would warrant reevaluation reviewed. Patient verbalized understanding and agreement with the plan of care. Departure - Departure Time of Disposition: 11:32 Disposition: Home, Self-Care 01 Condition: Good Clinical Impression: Nonhealing nonsurgical wound, Infection of right hand, Hx of type 1 diabetes mellitus, Hyperglycemia due to type 1 diabetes mellitus - Discharge Information *PRESCRIPTION DRUG MONITORING PROGRAM REVIEWED*: Not Applicable *COPY OF PRESCRIPTION DRUG MONITORING REPORT IN PATIENT XENIA: Not Applicable Instructions: Wound Care, Adult Referrals: PCP,None [Primary Care Provider] - Forms: ED Department Discharge Additional Instructions: Rx: clindamycin Rx: ciprofloxacin 1.) Take all of your antibiotics until they are gone. 2.) Keep appointment with Des for this Tuesday, discuss possible need for infectious disease consult. 3.) Keep wound clean and dry. 4.) Drink plenty of water to stay hydrated. 5.) Eat yogurt or take a daily probiotic for gut health while on antibiotics.
[2021-03-01 12:27] VITALS: BP 152/93; PULSE 83
== END 2021-03-01 12:25 | disposition home or self-care (01) ==
LOC: DL.ED 10:04
DX: T81.40XA Infection following a procedure, unspecified, initial encounter (principal); L08.9 Local infection of the skin and subcutaneous tissue, unspecified; E10.65 Type 1 diabetes mellitus with hyperglycemia
CPT/HCPCS: 36415; 73140-F7; 80053; 82947; 83605; 85025; 86140; 87040; 87070; 87077; 87186; 87205; 96365; 99283; 99285-25; A9270-GY; J0744

== ENCOUNTER 2021-04-03 18:32 | Emergency (ER) | payer MEDICAID, OTHER ==
[2021-04-03 18:53] VITALS: BP 107/71; PULSE 108
--- NOTE | 2021-04-03 19:17 | EDM.PDOC ---
ED HPI GENERAL MEDICAL PROBLEM - General Chief Complaint: Skin Complaint Stated Complaint: NEED PIC LINE CHANGE Time Seen by Provider: 04/03/21 19:00 Source of Information: Reports: Patient History Limitations: Reports: No Limitations - History of Present Illness INITIAL COMMENTS - FREE TEXT/NARRATIVE: ED for dressing change on PICC line right upper arm. Hx strep infection right 3rd finger, recieiving antibiotics for next 2-3 weeks. Usually has dressing change at clinic but closed and not open during weekend. - Related Data Allergies Allergy/AdvReac Type Severity Reaction Status Date / Time No Known Allergies Allergy Verified 03/01/21 10:21 Home Meds: Home Meds Insulin Aspart [NovoLOG] 7 unit SUBCUT ASDIRECTED 11/03/15 [History] Insulin Glarg,Human.Rec.Analog [LantUS] 32 unit SUBCUT DAILY 11/03/15 [History] Past Medical History HEENT History: Reports: Impaired Vision Other HEENT History: wears glasses Cardiovascular History: Reports: None Respiratory History: Reports: Other (See Below) Other Respiratory History: hx R) pneumothorax July 2018, 5 broken ribs Gastrointestinal History: Reports: None Genitourinary History: Reports: None Musculoskeletal History: Reports: None Neurological History: Reports: None Psychiatric History: Reports: None Endocrine/Metabolic History: Reports: Diabetes, Type I Hematologic History: Reports: None Immunologic History: Reports: None Oncologic (Cancer) History: Reports: None Dermatologic History: Reports: None - Infectious Disease History Infectious Disease History: Reports: None - Past Surgical History Head Surgeries/Procedures: Reports: None Musculoskeletal Surgical History: Reports: Arthroscopic Procedure Other Musculoskeletal Surgeries/Procedures:: RIGHT hip x 2 arthroscopic. Torn labrum. Social & Family History - Family History Family Medical History: No Pertinent Family History - Caffeine Use Caffeine Use: Reports: None, Coffee, Energy Drinks, Soda, Tea, Other - Living Situation & Occupation Living situation: Reports: with Family ED ROS GENERAL - Review of Systems Review Of Systems: Comprehensive ROS is negative, except as noted in HPI. ED EXAM, SKIN/RASH Exam: See Below Exam Limited By: No Limitations General Appearance: Alert, No Apparent Distress Ears: Normal External Exam Throat/Mouth: Normal Voice, No Airway Compromise Respiratory/Chest: No Respiratory Distress, Lungs Clear Cardiovascular: Regular Rate, Rhythm Extremities: Other (PICC upper right arm) Location, Skin: Lower Extremity, Right (right 3rd MIP healing laceration erythema caloused joint swelling) Course - Vital Signs Last Recorded V/S: Last Vital Signs Temp 99 F 04/03/21 18:50 Pulse 108 H 04/03/21 18:50 Resp 16 04/03/21 18:50 BP 107/71 04/03/21 18:50 Pulse Ox 99 04/03/21 18:50 Departure - Departure Time of Disposition: 19:16 Disposition: Home, Self-Care 01 Condition: Good Clinical Impression: Dressing change - Discharge Information *PRESCRIPTION DRUG MONITORING PROGRAM REVIEWED*: No *COPY OF PRESCRIPTION DRUG MONITORING REPORT IN PATIENT XENIA: No Referrals: PCP,None [Primary Care Provider] - Forms: ED Department Discharge Additional Instructions: clinic Follow up continue antibiotic course Sepsis Event Note (ED) - Evaluation Sepsis Screening Result: No Definite Risk
== END 2021-04-03 19:27 | disposition home or self-care (01) ==
LOC: DL.ED 18:32
DX: Z48.01 Encounter for change or removal of surgical wound dressing (principal); E10.9 Type 1 diabetes mellitus without complications
CPT/HCPCS: 99282

== ENCOUNTER 2021-07-02 20:59 | Emergency (ER) | payer MEDICAID | END 2021-07-02 22:12 | disposition left against medical advice (07) | LOC: DL.ED 20:59 | DX: Z53.21 Procedure and treatment not carried out due to patient leaving prior to being seen by health care provider (principal) ==

== ENCOUNTER 2021-07-03 23:01 | Emergency (ER) | payer MEDICAID ==
[2021-07-04 00:08] VITALS: BP 121/75; PULSE 94
--- NOTE | 2021-07-04 00:12 | EDM.PDOC ---
ED HPI GENERAL MEDICAL PROBLEM - General Stated Complaint: PAIN IN BOTH EARS Time Seen by Provider: 07/04/21 00:05 Source of Information: Reports: Patient - History of Present Illness INITIAL COMMENTS - FREE TEXT/NARRATIVE: Pt is here for bilateral ear pain that started a few days ago. He noted that it started with some drainage, then he tried to clean them out with q-tips. He noted some blood on the left ears q-tip. Since then he has felt/heard scratching and popping in his ears. No sinus drainage or congestion. No fevers or chills. No sore throat. No previous history of similar symptoms. He is worried about an infection or bugs in his ears. - Related Data Allergies Allergy/AdvReac Type Severity Reaction Status Date / Time No Known Allergies Allergy Verified 03/01/21 10:21 Home Meds: Home Meds Insulin Aspart [NovoLOG] 7 unit SUBCUT ASDIRECTED 11/03/15 [History] Insulin Glarg,Human.Rec.Analog [LantUS] 32 unit SUBCUT DAILY 11/03/15 [History] Past Medical History HEENT History: Reports: Impaired Vision Other HEENT History: wears glasses Cardiovascular History: Reports: None Respiratory History: Reports: Other (See Below) Other Respiratory History: hx R) pneumothorax July 2018, 5 broken ribs Gastrointestinal History: Reports: None Genitourinary History: Reports: None Musculoskeletal History: Reports: None Neurological History: Reports: None Psychiatric History: Reports: None Endocrine/Metabolic History: Reports: Diabetes, Type I Hematologic History: Reports: None Immunologic History: Reports: None Oncologic (Cancer) History: Reports: None Dermatologic History: Reports: None - Infectious Disease History Infectious Disease History: Reports: None - Past Surgical History Head Surgeries/Procedures: Reports: None Musculoskeletal Surgical History: Reports: Arthroscopic Procedure Other Musculoskeletal Surgeries/Procedures:: RIGHT hip x 2 arthroscopic. Torn labrum. Social & Family History - Family History Family Medical History: No Pertinent Family History - Caffeine Use Caffeine Use: Reports: None, Coffee, Energy Drinks, Soda, Tea, Other - Living Situation & Occupation Living situation: Reports: with Family ED ROS ENT - Review of Systems Review Of Systems: Comprehensive ROS is negative, except as noted in HPI. ED EXAM, ENT - Physical Exam Exam: See Below Exam Limited By: No Limitations General Appearance: Alert, WD/WN, No Apparent Distress Eye Exam: Bilateral Eye: Normal Inspection Ears: Normal External Exam, Normal Canal, Hearing Grossly Normal, TM Bulging (right), TM Erythema (right), TM Fluid (bilateral). No: TM Perforation Mouth/Throat: Normal Inspection, Normal Gums, Normal Lips, Normal Oropharynx Head: Atraumatic, Normocephalic Neck: Normal Inspection, Supple, Non-Tender Respiratory/Chest: No Respiratory Distress, Lungs Clear, Normal Breath Sounds, No Accessory Muscle Use Cardiovascular: Normal Peripheral Pulses, Regular Rate, Rhythm, No Murmur GI/Abdominal: Soft, Non-Tender (Male) Exam: Deferred Rectal (Males) Exam: Deferred Back: Normal Inspection, Full Range of Motion Extremities: Normal Inspection, Normal Range of Motion, Normal Capillary Refill Neurological: Alert, Oriented, Normal Cognition, No Motor/Sensory Deficits Psychiatric: Normal Affect, Normal Mood Skin: Warm, Dry, Intact, Normal Color, No Rash Course - Re-Assessments/Exams Free Text/Narrative Re-Assessment/Exam: Discussed treatment options. First dose of antibiotics given in the ER. Rx for remainder given to pt to fill at the pharmacy tomorrow. Reviewed reasons to call/return to the ER. Pt verbalized understanding. 07/04/21 00:16 Departure - Departure Time of Disposition: 00:16 Disposition: Home, Self-Care 01 Condition: Good Clinical Impression: Otitis media Qualifiers: Otitis media type: suppurative Chronicity: acute Laterality: right Recurrence: non-recurrent Spontaneous tympanic membrane rupture: without spontaneous rupture Qualified Code(s): H66.001 - Acute suppurative otitis media without spontaneous rupture of ear drum, right ear - Discharge Information *PRESCRIPTION DRUG MONITORING PROGRAM REVIEWED*: Not Applicable *COPY OF PRESCRIPTION DRUG MONITORING REPORT IN PATIENT XENIA: Not Applicable Instructions: Otitis Media, Adult, [id number] Additional Instructions: Augmentin BID for 10 day, potential side effects include nausea and loose stools. Taking this medication with food will help decrease the side effects. If symptoms worsen, call/return to the ER Follow up with your primary care provider in 3-5 days
[2021-07-04] MEDS: Amoxicillin/Clavulanate K 875-125 MG Tab PO ONE (00:25)
== END 2021-07-04 00:24 | disposition home or self-care (01) ==
LOC: DL.ED 23:01
DX: H66.001 Acute suppurative otitis media without spontaneous rupture of ear drum, right ear (principal); E10.9 Type 1 diabetes mellitus without complications
CPT/HCPCS: 99282; A9270

== ENCOUNTER 2021-11-24 22:19 | Emergency (ER) | payer SELFPAY | END 2021-11-24 23:19 | disposition left against medical advice (07) | LOC: DL.ED 22:19 | DX: M79.603 Pain in arm, unspecified (principal); Z53.21 Procedure and treatment not carried out due to patient leaving prior to being seen by health care provider ==

== ENCOUNTER 2021-11-29 23:06 | Emergency (ER) | payer MEDICAID ==
[2021-11-29 23:32] VITALS: BP 132/98; PULSE 92
== END 2021-11-29 23:56 | disposition left against medical advice (07) ==
LOC: DL.ED 23:06
DX: Z53.21 Procedure and treatment not carried out due to patient leaving prior to being seen by health care provider (principal)

== ENCOUNTER 2022-02-21 16:26 | Emergency (ER) | payer BC ==
[2022-02-21 16:50] VITALS: BP 130/97; PULSE 103
[2022-02-21] MEDS ORDERED: Sodium Chloride 0.9% 10 ML Syringe FLUSH PRN (17:22)
[2022-02-21 18:00] LABS: ANION GAP 10.9 mEq/L (7-13); CHLORIDE,CL 103 mmol/L (98-107); SODIUM,NA 140 mmol/L (136-145)
[2022-02-21 18:39] LABS: AMPHETAMINES,URINE POSITIVE (NEGATIVE); BARBITURATES,URINE NEGATIVE (NEGATIVE); BENZODIAZEPINE,URINE NEGATIVE (NEGATIVE); MDMA (ECSTASY), URINE NEGATIVE (NEGATIVE); METHADONE,URINE NEGATIVE (NEGATIVE); METHAMPHETAMINES,URINE POSITIVE (NEGATIVE); OPIATES,URINE NEGATIVE (NEGATIVE); OXYCODONE,URINE NEGATIVE (NEGATIVE); PHENCYCLIDINE,URINE NEGATIVE (NEGATIVE); TCA,URINE NEGATIVE (NEGATIVE)
[2022-02-21] MEDS ORDERED: Ketorolac 30 MG/ML SDV IVPUSH ONE (18:43)
== END 2022-02-21 19:08 | disposition home or self-care (01) ==
LOC: DL.ED 16:26
DX: I30.8 Other forms of acute pericarditis (principal); I10 Essential (primary) hypertension; E10.9 Type 1 diabetes mellitus without complications; Z72.0 Tobacco use
CPT/HCPCS: 36415; 71045; 80053; 80305; 80307; 83690; 83735; 84484; 85025; 85379; 85610; 85651; 86140; 93005; 93010; 96374; 99283; 99284; J1885; J3490

== ENCOUNTER 2022-07-14 03:21 | Emergency (ER) | payer BC ==
[2022-07-14 03:37] VITALS: BP 157/104; PULSE 112
[2022-07-14 04:03] LABS: BARBITURATES,URINE NEGATIVE (NEGATIVE); BENZODIAZEPINE,URINE NEGATIVE (NEGATIVE); MDMA (ECSTASY), URINE NEGATIVE (NEGATIVE); METHADONE,URINE NEGATIVE (NEGATIVE); METHAMPHETAMINES,URINE POSITIVE (NEGATIVE); OPIATES,URINE NEGATIVE (NEGATIVE); PHENCYCLIDINE,URINE NEGATIVE (NEGATIVE); TCA,URINE NEGATIVE (NEGATIVE)
[2022-07-14 04:03] LABS: CHLORIDE,CL 101 mmol/L (98-107); SODIUM,NA 142 mmol/L (136-145)
[2022-07-14 04:04] LABS: ESTIMATED GFR 87 mL/min (>=60)
[2022-07-14 04:04] LABS: AMPHETAMINES,URINE POSITIVE (NEGATIVE); OXYCODONE,URINE NEGATIVE (NEGATIVE)
[2022-07-14] MEDS ORDERED: Potassium Chloride 20 MEQ in Premix Bag 1 BAG IV ONE (04:15)
[2022-07-14] MEDS ORDERED: Magnesium Sulfate/Water 2 GM in Premix Bag 1 BAG IV ONE (04:15)
[2022-07-14] MEDS ORDERED: Potassium Chloride 10 MEQ Tab.ER PO ONE (04:15)
[2022-07-14] MEDS ORDERED: Sodium Chloride 0.9% 500 ML IV SCH (04:30)
== END 2022-07-14 07:22 | disposition home or self-care (01) ==
LOC: DL.ED 03:21
DX: J40 Bronchitis, not specified as acute or chronic (principal); I10 Essential (primary) hypertension; E10.9 Type 1 diabetes mellitus without complications; F17.210 Nicotine dependence, cigarettes, uncomplicated; Z79.4 Long term (current) use of insulin; Z79.899 Other long term (current) drug therapy; Z86.16 Personal history of COVID-19; Z20.822 Contact with and (suspected) exposure to COVID-19
CPT/HCPCS: 36415; 71045; 80053; 80305; 80307; 81001; 82150; 82947; 83605; 83690; 83735; 84484; 85025; 85379; 86140; 87086; 87635; 93005; 93010; 96365; 96366; 96367; 99284; 99285; A9270; J3475; J3480; J7040; U0002

== ENCOUNTER 2022-07-15 07:34 | Emergency (ER) | payer BC ==
[2022-07-15 08:02] VITALS: BP 148/97; PULSE 124
[2022-07-15 08:22] LABS: AMPHETAMINES,URINE NEGATIVE (NEGATIVE); BARBITURATES,URINE NEGATIVE (NEGATIVE); BENZODIAZEPINE,URINE NEGATIVE (NEGATIVE); MDMA (ECSTASY), URINE NEGATIVE (NEGATIVE); METHADONE,URINE NEGATIVE (NEGATIVE); METHAMPHETAMINES,URINE POSITIVE (NEGATIVE); OPIATES,URINE NEGATIVE (NEGATIVE); OXYCODONE,URINE NEGATIVE (NEGATIVE); PHENCYCLIDINE,URINE NEGATIVE (NEGATIVE); TCA,URINE NEGATIVE (NEGATIVE)
[2022-07-15 08:36] LABS: ANION GAP 16.2 mEq/L (7-13); CHLORIDE,CL 98 mmol/L (98-107); SODIUM,NA 139 mmol/L (136-145)
[2022-07-15 08:44] LABS: ESTIMATED GFR 79 mL/min (>=60)
[2022-07-15 08:45] LABS: ACETAMINOPHEN 0 ug/mL (10-30 (Therapeutic))
== END 2022-07-15 09:32 | disposition left against medical advice (07) ==
LOC: DL.ED 07:34
DX: R41.82 Altered mental status, unspecified (principal); R44.3 Hallucinations, unspecified; E10.9 Type 1 diabetes mellitus without complications; I10 Essential (primary) hypertension; Z79.899 Other long term (current) drug therapy
CPT/HCPCS: 36415; 80053; 80143; 80179; 80305-QW; 80307; 81001; 83605; 85025; 99283; 99285